=== PATIENT | male | born 1945 | race Two or more races ===

== ENCOUNTER 2018-12-03 08:44 | Day surgery (SDC) | payer OTHER ==
[2018-11-28 11:33] VITALS: BMI 20.9
[2018-12-03] MEDS: CIPROFLOXACIN 0.3% EYE DROPS 5 ML BOTTLE ONE ×3 (09:15→09:25)
[2018-12-03] MEDS: CYCLOPENTOLATE 2% OPHTH SOLN 2 ML BOTTLE ONE ×3 (09:15→09:25)
[2018-12-03] MEDS: PHENYLEPHRINE 2.5% OPHTH SOLN 15 ML BOTTLE ONE ×3 (09:15→09:25)
[2018-12-03] MEDS: TROPICAMIDE 1% OPHTH SOLN 15 ML BOTTLE ONE ×3 (09:15→09:25)
[2018-12-03] MEDS ORDERED: MITOMYCIN 0.02% EYE DROPS - 2ML VIAL IO ONE (10:00)
[2018-12-03] MEDS ORDERED: MIDAZOLAM HCL 2 MG/2 ML SINGLE DOSE VIAL ONE ×2 (10:22→12:00)
[2018-12-03] MEDS ORDERED: LIDOCAINE 1%/EPI 1:100000 (20 ML MULTI DOSE VIAL) ONE (10:40)
[2018-12-03] MEDS ORDERED: LIDOCAINE HCL 2% JELLY 10 ML CARTRIDGE ONE (10:40)
[2018-12-03] MEDS ORDERED: BSS (NA/CA/MG/K) BALANCED SALT SOLUTION OPHTH SOLN 15 ML BOTTLE ONE ×3 (10:43→11:41)
[2018-12-03] MEDS ORDERED: CARBACHOL 0.01% INTRA-OCULAR 1.5 ML VIAL ONE (10:43)
[2018-12-03] MEDS ORDERED: DEXAMETHASONE SOD PHOSPHATE 4 MG/1 ML VIAL ONE (10:56)
[2018-12-03] MEDS ORDERED: ceFAZolin SODIUM 1 GM VIAL ONE (10:56)
[2018-12-03] MEDS ORDERED: TETRACAINE 0.5% OPHTH SOLN 2 ML BOTTLE ONE (11:29)
[2018-12-03 12:26] VITALS: TEMP 98.4
[2018-12-03 12:56] VITALS: BP 145/86; PULSE 62
[2018-12-03] MEDS ORDERED: ONDANSETRON 4 MG/2 ML VIAL IVPUSH PRN (12:56)
[2018-12-03] MEDS ORDERED: ACETAMINOPHEN 325 MG TABLET (FP) PO PRN (12:56)
[2018-12-03] MEDS ORDERED: LACTATED RINGERS SOLUTION 1,000 ML IV SCH (13:00)
--- NOTE | 2018-12-05 09:50 | PATH ---
Surgical Pathology Report Patient Name: GEOVANY MO Med. Rec. #: [id number] /Age/Gender: 1945 (Age: 73) / M Account: [id number] Location: [facility] Taken: 12/03/2018 Received: 12/03/2018 Reported: 12/05/2018 Physicians: Talon Arrieta M.D. Specimen(s) Received LEFT EYE PTERYGIUM Clinical History Dense cataract/pterygium Final Diagnosis PTERYGIUM, LEFT EYE, EXCISION: PTERYGIUM. Electronically Signed Stacia Prasad M.D. Gross Description Received in formalin, labeled "pterygium left eye" are 2 martínez, irregular portions of soft tissue measuring 0.3 and 0.6 cm. in greatest dimension. The specimens are submitted in toto in one cassette. /12/03/201812/03/2018
== END 2018-12-03 13:00 | disposition home or self-care (01) ==
LOC: FASU 08:44
PROVIDERS: ATTEND Ophthalmology
PROC: 08U907Z Supplement Left Cornea with Autologous Tissue Substitute, Open Approach (ICD-10-PCS; 2018-12-03)
PROC: 08RK3JZ Replacement of Left Lens with Synthetic Substitute, Percutaneous Approach (ICD-10-PCS; principal; 2018-12-03 11:16)
PROC: 08B9XZZ Excision of Left Cornea, External Approach (ICD-10-PCS; 2018-12-03 11:16)
DX: H26.8 Other specified cataract (principal); H11.002 Unspecified pterygium of left eye
CPT/HCPCS: 88304-TC

== ENCOUNTER 2019-02-11 09:24 | Day surgery (SDC) | payer OTHER ==
[2019-02-06 11:54] VITALS: BMI 20.9
[~2019-02-11 09:24] MED LIST: ONDANSETRON 4 MG/2 ML VIAL IVPUSH PRN
[2019-02-11] MEDS: CIPROFLOXACIN 0.3% EYE DROPS 5 ML BOTTLE ONE ×3 (10:05→10:15)
[2019-02-11] MEDS: PHENYLEPHRINE 2.5% OPHTH SOLN 15 ML BOTTLE ONE ×3 (10:05→10:15)
[2019-02-11] MEDS: TROPICAMIDE 1% OPHTH SOLN 15 ML BOTTLE ONE ×3 (10:05→10:15)
[2019-02-11] MEDS: CYCLOPENTOLATE 2% OPHTH SOLN 2 ML BOTTLE ONE ×3 (10:05→10:15)
[2019-02-11] MEDS ORDERED: MIDAZOLAM HCL 2 MG/2 ML SINGLE DOSE VIAL ONE (10:36)
[2019-02-11] MEDS ORDERED: BSS (NA/CA/MG/K) BALANCED SALT SOLUTION OPHTH SOLN 15 ML BOTTLE ONE (10:51)
[2019-02-11] MEDS ORDERED: LIDOCAINE 1% P/F 10 MG/ML VIAL ONE (10:51)
[2019-02-11] MEDS ORDERED: NEO/POLYMYX B SULF/DEXAMETH OPHTHALMIC 5ML BOTTLE ONE (10:52)
[2019-02-11] MEDS ORDERED: LIDOCAINE HCL 2% JELLY 10 ML CARTRIDGE ONE (11:04)
[2019-02-11 13:00] VITALS: TEMP 97.5
[2019-02-11 13:02] VITALS: BP 120/67
[2019-02-11 13:05] VITALS: PULSE 60
--- NOTE | 2019-02-12 16:01 | PATH ---
Surgical Pathology Report Patient Name: GEOVANY MO [facility]. Rec. #: [id number] /Age/Gender: 1945 (Age: 73) / M Account: [id number] Location: [facility] Taken: 02/11/2019 Received: 02/11/2019 Reported: 02/12/2019 Physicians: Talon Arrieta M.D. Specimen(s) Received RIGHT EYE RECURRENT PTERYGIUM Clinical History Right eye cataract/pterygium Final Diagnosis EYE, RIGHT, RECURRENT PTERYGIUM, EXCISION: PTERYGIUM. Electronically Signed Stacia Prasad M.D. Gross Description Received in formalin, labeled "right eye recurrent pterygium" are 2 martínez, irregular portions of soft tissue measuring 0.4 and 0.6 cm. in greatest dimension. The specimens are submitted in toto in one cassette. /02/11/2019 saudi02/11/2019
--- NOTE | 2019-03-27 11:07 | OP ---
DATE OF OPERATION: 02/11/2019 OPERATIVE PROCEDURE: Lens phacoemulsification with posterior chamber intraocular lens placement as well as pterygium excision of the right eye. PREOPERATIVE DIAGNOSIS: Visually significant pterygium and cataract of right eye. POSTOPERATIVE DIAGNOSIS: Visually significant pterygium and cataract of right eye. SURGEON: Talon Fay MD PROCEDURE: The patient was brought to the operating room and placed under monitored anesthesia care by Anesthesia. A drop of tetracaine was then placed over the right eye. The patient was then prepped and draped in the usual sterile manner. A speculum was then placed over the right eye. The eye was then well irrigated with copious amounts of balanced salt solution. Then, 1% lidocaine was injected beneath the pterygium. The pterygium was then excised down to bare sclera using a 0.12 forceps and Dannie scissors. The pterygium was then sent to Pathology. An amniotic graft was then used to cover the bare sclera using Tisseel Glue. Excess glue was removed. A paracentesis was then performed using a 15 degree blade. At this point 0.5 mL of 1% preservative-free lidocaine was injected into the anterior chamber. Amvisc plus was then injected into the anterior chamber. A clear corneal incision was then formed using a 2.2 mm keratome. A capsulorrhexis was then performed in a continuous circular fashion beginning with a cystotome and completed with a Utratas forceps. Hydrodissection was then performed using BSS on a cannula. The phaco probe was then introduced through the corneal wound and the cataract was removed using the phaco chop technique. Approximately 3 seconds of absolute phaco time was used. The remaining cortex was then removed using irrigation and aspiration with an I/A probe. The capsule was then filled with regular Amvisc and the capsule was noted to be intact. A previously selected foldable posterior chamber intraocular lens was then injected into the capsule through the corneal wound using a lens injector. It was then dialed into position using a Sinskey hook. The Amvisc was then removed using irrigation and aspiration. Miostat was then injected through the paracentesis to constrict the pupil. The paracentesis and corneal wound were then hydrated and noted to be water tight. A drop of Maxitrol was then placed over the eye. The speculum was removed and a shield was placed over the eye. The patient tolerated the procedure well and was asked to follow up the following day in my office. TALON FAY M.D. [id number] / [id number]
== END 2019-02-11 12:50 | disposition home or self-care (01) ==
LOC: FASU 09:24
PROVIDERS: ATTEND Ophthalmology
PROC: 08RJ3JZ Replacement of Right Lens with Synthetic Substitute, Percutaneous Approach (ICD-10-PCS; principal; 2019-02-11 11:10)
PROC: 08BSXZZ Excision of Right Conjunctiva, External Approach (ICD-10-PCS; 2019-02-11 11:10)
DX: H26.8 Other specified cataract (principal); H11.001 Unspecified pterygium of right eye
CPT/HCPCS: 88304-TC